=== PATIENT | male | born 1975 | race Caucasian/White ===

== ENCOUNTER 2020-02-19 10:02 | Outpatient (CLI) | payer SELFPAY ==
--- NOTE | 2020-02-19 10:12 | FL_ITS ---
WS: [id number] ESOPHAGRAM WITH FLUOROSCOPY HISTORY: DYSPHAGIA, OROPHARYNGEAL PHASE COMPARISON: None available. FLUOROSCOPY TIME: 1.2 minutes. Stock Dealer radiograph: Mild disc space narrowing and hypertrophic bone formation at C5-6. No fracture. Esophagus and swallowing function: Patient swallowed the barium mixture without difficulty. No strict ures or mucosal abnormalities are identified. There is minimal cricopharyngeal spasm and narrowing of the cervical esophagus at its. Gastroesophageal reflux: None. Hiatal hernia: Very small reducible hiatal hernia was noted during the examination. FL/FL barium swallow [id number] IMPRESSION: 1. Minimal cricopharyngeal spasm at C6. 2. Very small reducible hiatal hernia.
== END 2020-02-19 10:03 | disposition home or self-care (01) ==
LOC: RAD 10:07
PROVIDERS: Visit Provider Specialist
DX: K21.9 Gastro-esophageal reflux disease without esophagitis (principal); R13.12 Dysphagia, oropharyngeal phase; K44.9 Diaphragmatic hernia without obstruction or gangrene
CPT/HCPCS: 74220

== ENCOUNTER 2020-02-24 09:19 | Outpatient (CLI) | payer SELFPAY ==
--- NOTE | 2020-02-24 09:27 | FL_ITS ---
WS: [id number] MODIFIED BARIUM SWALLOW TECHNIQUE: Modified barium swallow with speech therapy using multiple consistencies. FLUOROSCOPY TIME: 2 minutes. CLINICAL INFORMATION: Oropharyngeal dysphagia COMPARISON: None. FINDINGS: Multiple consistencies utilized. No evidence of aspiration penetration. Mild pooling in the vallecula which cleared with additional swallows. No difficulties with barium tablet. Mild esophageal dysmotil ity partially visualized. FL/FL barium swallow modifd [id number] IMPRESSION: 1. No evidence of aspiration/penetration. 2. No difficulties with the barium tablet. 3. Mild esophageal dysmotility partially visualized.
== END 2020-02-24 09:20 | disposition home or self-care (01) ==
LOC: RAD 09:21
PROVIDERS: PCP Family Medicine; Visit Provider Specialist
DX: R13.12 Dysphagia, oropharyngeal phase (principal)
CPT/HCPCS: 74230; 92611

== ENCOUNTER → 2021-02-10 15:46 | Outpatient (BNVA) | payer SELFPAY | PROVIDERS: PCP Family Medicine; Visit Provider Emergency Medicine | DX: U07.1 COVID-19 (principal); J12.82 Pneumonia due to coronavirus disease 2019 | CPT/HCPCS: 71046 ==

== ENCOUNTER → 2022-03-25 14:00 | Outpatient (BNVA) | payer SELFPAY | PROVIDERS: PCP Family Medicine; Visit Provider Podiatrist Foot & Ankle Surgery | DX: M20.21 Hallux rigidus, right foot (principal); M20.22 Hallux rigidus, left foot; M89.8X7 Other specified disorders of bone, ankle and foot | CPT/HCPCS: 73630 ==